=== PATIENT | male | born 1970 | race African-American/Black ===

== ENCOUNTER 2018-07-01 19:56 | Emergency (ER) | payer MEDICAID, OTHER, SELFPAY ==
[~2018-07-01] VITALS: Ht 177.8 cm; Wt 78.0 kg
[2018-07-01 19:59] VITALS: BP 128/84
== END 2018-07-01 20:42 | disposition home or self-care (01) ==
LOC: ED 20:36
DX: B34.9 Viral infection, unspecified (principal); J45.909 Unspecified asthma, uncomplicated
CPT/HCPCS: 71046; 93005; 99284